=== PATIENT | female | born 1980 | race Caucasian/White ===

== ENCOUNTER 2022-11-19 22:18 | Emergency (ER) | payer SELFPAY ==
[~2022-11-19] VITALS: Ht 165.1 cm; Wt 70.0 kg
[2022-11-19] MEDS ORDERED: ONDANSETRON HCL 4MG TABLET PO NR (22:30)
[2022-11-19] MEDS ORDERED: ASPIRIN 325MG EC TABLET PO NR (22:30)
[2022-11-19 22:52] LABS: BASOPHILS % 1.2 % (0.0-2.0); EOSINOPHILS % 2.2 % (0.0-5.0); HEMATOCRIT. 39.3 % (36.0-48.0); HEMOGLOBIN. 13.3 g/dL (12.0-16.0); MEAN CORPUSCULAR HEMOGLOBIN 29.5 pg (28.0-32.0); MEAN PLATELET VOLUME 8.1 fl (7.4-10.4); MONOCYTES % 7.4 % (2.0-8.0); NEUTROPHILS % 48.2 % (40.0-76.0); PLATELET 398 x1000/uL (130-400); RED BLOOD CELL COUNT 4.52 mill/uL (4.2-5.4); RED CELL DISTRIBUTION WIDTH 13.7 % (11.6-14.6)
[2022-11-19 22:56] LABS: CHLORIDE 110 mEq/L (98-107)
[2022-11-19] MEDS ORDERED: BACL-141 MT (23:55)
[2022-11-19] MEDS ORDERED: PRED10TA MT (23:55)
[2022-11-19] MEDS ORDERED: IBUP-2028 MT (23:55)
[2022-11-20] MEDS ORDERED: KETOROLAC 30MG/ML VIAL IM ONE
[2022-11-20 00:10] VITALS: BP 130/79
== END 2022-11-20 00:11 | disposition home or self-care (01) ==
LOC: ER 22:18
DX: J40 Bronchitis, not specified as acute or chronic (principal); R55 Syncope and collapse
CPT/HCPCS: 36415; 71045; 80053; 84484; 85025; 93005; 96372; 99285; J1885; Q0162